=== PATIENT | female | born 1945 | race Caucasian/White ===

== ENCOUNTER 2017-01-31 09:04 | Inpatient (IN) | payer OTHER ==
[2017-01-31] MEDS ORDERED: SODIUM CHLORIDE 1,000 ML IV ONE (09:49)
--- NOTE | 2017-01-31 09:50 | PDOC ---
History of Present Illness <Mark Mcintosh - Last Filed: 01/31/17 14:01> - General History Source: Patient, Spouse, Old Records Exam Limitations: No Limitations - History of Present Illness Initial Comments: 01/31/17 09:56 71-year-old female with history of hypertension and high cholesterol, uterine fibroids presents with heavy vaginal bleeding since last night around 11:30 PM. Patient was in her usual state of health, does not take any blood thinners, around 11:30 had painless bleeding from the vagina with clots that has been nonstop since last night, soaked about 5-6 pads during the night and another 3- 4 pads this morning so she presents for evaluation. No pain, no lightheadedness or syncope, no palpitations or chest pain. No urinary complaints or rectal bleeding. Patient was seen here 3 years ago for similar complaints, ultrasound at that time showed uterine fibroids and she had brief follow-up with [facility] but never had any procedures as per her and her . <Saeid Souza - Last Filed: 01/31/17 14:10> - General Chief Complaint: Vaginal Bleeding Stated Complaint: VAGINAL BLEEDING Time Seen by Provider: 01/31/17 09:31 Past History <Mark Mcintosh - Last Filed: 01/31/17 14:01> - Past Medical History HTN: Yes - Psycho/Social/Smoking Cessation Hx Anxiety: No Suicidal Ideation: No Smoking History: Never smoked Hx Alcohol Use: Yes (SOCIAL) Substance Use Type: None <Saeid Souza - Last Filed: 01/31/17 14:10> - Past Medical History Allergies/Adverse Reactions: Allergies Allergy/AdvReac Type Severity Reaction Status Date / Time No Known Allergies Allergy Verified 01/31/17 09:13 Home Medications: Ambulatory Orders Amlodipine Besylate [Norvasc -] 10 mg PO DAILY 01/31/17 Atorvastatin Ca [Lipitor] 40 mg PO HS 01/31/17 Lisinopril/Hydrochlorothiazide [Lisinopril-Hctz 20-12.5 mg Tab] 1 each PO DAILY 01/31/17 Review of Systems - Review of Systems Constitutional: No: Chills, Fever Respiratory: No: Cough, Shortness of Breath ABD/GI: No: Diarrhea, Nausea, Vomiting : No: Dysuria, Incontinence Integumentary: No: Bruising Neurological: No: Headache All Other Systems: Reviewed and Negative <Saeid Souza - Last Filed: 01/31/17 14:10> *Physical Exam - Vital Signs Last Vital Signs Temp Pulse Resp BP Pulse Ox 98.5 F 75 16 122/55 95 01/31/17 10:02 01/31/17 11:46 01/31/17 11:46 01/31/17 11:46 01/31/17 11:46 <Mark Mcintosh - Last Filed: 01/31/17 14:01> - Vital Signs Last Vital Signs Temp Pulse Resp BP Pulse Ox 97.8 F 115 H 19 155/75 98 01/31/17 09:13 01/31/17 09:13 01/31/17 09:13 01/31/17 09:13 01/31/17 09:13 - Physical Exam Comments: 01/31/17 09:58 Heart rate 115 at triage, lying in stretcher improved to 90. Blood pressure within normal limits GENERAL: The patient is awake, alert, and fully oriented, in no acute distress. No obvious skin pallor. HEAD: Normal with no signs of trauma. EYES: PERRL, EOMI, sclera anicteric, conjunctiva clear with no pallor. ENT: oropharynx clear without exudates. Moist mucous membranes. NECK: Normal range of motion, supple without lymphadenopathy, JVD, or masses. LUNGS: Breath sounds equal, clear to auscultation bilaterally. No wheeze/ crackles. HEART: Regular rate and rhythm, normal S1 and S2 without murmur or rub ABDOMEN: Soft/nontender/nondistended. BS wnl. No guarding or rebound. No palpable masses. No hepatosplenomegaly. LATHE MECHANIC: Performed with finance attorney at bedside. Clots from vagina, no clear rectal bleeding. Some fresh blood oozing. EXTREMITIES: Normal range of motion, no edema. 2+ distal pulses. No cords, erythema, or tenderness. NEUROLOGICAL: Cranial nerves II through XII grossly intact. Normal speech, normal gait. PSYCH: Normal mood, normal affect. SKIN: Warm, Dry, no rashes or lesions noted. <Saeid Souza - Last Filed: 01/31/17 14:10> Heart Score/ECG Review #1 ECG reviewed & interpreted by me at: 09:53 Compared to previous ECG there are: Changes noted (2007) 01/31/17 10:08 Sinus at 91. Intervals are normal. ST depressions in the lateral leads 1 and aVL , V4 through V6. Submillimeter ST elevation isolated to V1 with some notable elevation in aVR as well. Compared to prior EKG from 2007, these changes are new. EKG reviewed with cardiology in the emergency department, not consistent with PHYLLIS for [place], the elevations are isolated to V1 and the depressions are not fraud representative of reciprocal changes. EKG and ST depressions more consistent with chronic disease. <Saeid Souza - Last Filed: 01/31/17 14:10> ED Treatment Course - LABORATORY CBC & Chemistry Diagram: 01/31/17 13:29 01/31/17 09:48 - ADDITIONAL ORDERS Additional order review: Laboratory Results 01/31/17 01/31/17 01/31/17 09:54 09:54 09:48 INR PTT (Actin FS) Sodium 141 Potassium 3.7 Chloride 104 Carbon Dioxide 28 Anion Gap 9 BUN 22 H Creatinine 0.9 Creat Clearance w eGFR > 60 Random Glucose 196 H D Calcium 9.1 Total Bilirubin 0.8 D AST 13 L ALT 24 Alkaline Phosphatase 80 Creatine Kinase 61 Troponin I < 0.02 Total Protein 7.1 Albumin 3.8 Anti-A Titer Cancelled Blood Type B POSITIVE Cancelled Antibody Screen Negative Cancelled Spec Expiration Date Cancelled 01/31/17 09:48 INR 1.14 PTT (Actin FS) 29.6 Sodium Potassium Chloride Carbon Dioxide Anion Gap BUN Creatinine Creat Clearance w eGFR Random Glucose Calcium Total Bilirubin AST ALT Alkaline Phosphatase Creatine Kinase Troponin I Total Protein Albumin Anti-A Titer Blood Type Antibody Screen Spec Expiration Date 01/31/17 01/31/17 13:29 09:48 RBC 3.62 3.98 MCV 89.6 89.9 MCHC 34.7 35.0 RDW 12.8 12.9 MPV 9.2 9.0 Neutrophils % 70.2 Lymphocytes % 21.3 Monocytes % 5.6 Eosinophils % 1.9 Basophils % 1.0 - Medications Given in the ED: ED Medications Discontinued Medications Generic Name Dose Route Start Last Admin Trade Name Freq PRN Reason Stop Dose Admin Sodium Chloride 1,000 mls @ 1,000 mls/hr 01/31/17 09:49 01/31/17 10:02 Normal Saline - IV 01/31/17 10:48 1,000 mls/hr ONCE ONE Administration - Consult/PCP Time Called: 01:40 Case discussed with consulting physician: Katy Her - Additional Consults Time Called: 02:00 Consult/PCP: Dr. Sveta Hoyt <Mark Mcintosh - Last Filed: 01/31/17 14:01> - LABORATORY CBC & Chemistry Diagram: 01/31/17 13:29 01/31/17 09:48 - RADIOLOGY Radiology Studies Ordered: Category Date Time Status CHEST X-RAY PORTABLE* [RAD] Stat Radiology 01/31/17 09:45 Ordered <Saeid Souza - Last Filed: 01/31/17 14:10> Medical Decision Making - Medical Decision Making 01/31/17 10:04 71-year-old female with history of hypertension, high cholesterol, fibroids presents with heavy vaginal bleeding since last night, otherwise essentially asymptomatic without lightheadedness/near syncope/chest pain/palpitations. Tachycardic at triage, improved with lying in stretcher, active slow bleed from vagina with clots. Abdomen is otherwise benign. Placed immediately on monitor and large-bore IV access obtained IV fluid resuscitation initiated Blood work including type and screen EKG Transfuse as needed Pelvic ultrasound, likely [facility] MECH[employer]IC consult Reassess 01/31/17 10:47 Hemoglobin 12.5, previously 13.6 and 2014. Hemodynamically improved, blood pressure 130 systolic and heart rate 72. Clot in the vagina, still slow/oozing active bleeding. EKG x2 showed lateral ST depressions unchanged, reviewed with cardiology and no notable PHYLLIS. Will repeat CBC at 1pm, likely admission/application support administrator consultation given ongoing bleeding. 01/31/17 13:21 HD stable and improved, still with active bleeding from vagina with clots. Sono shows large heterogeneous fibroid. 2nd CBC sent, will consult [facility] and proceed given ongoing bleeding. 01/31/17 14:09 Hemoglobin 11.3, remains hemodynamically stable. Discussed with Dr. Jacobson, agrees with management. Will discuss case with Dr. Teran. Accepted for obs med/surg by Dr. Hoyt. <Saeid Souza - Last Filed: 01/31/17 14:10> *DC/Admit/Observation/Transfer <Mark Mcintosh - Last Filed: 01/31/17 14:01> - Discharge Dispostion Admit: Yes <Saeid Souza - Last Filed: 01/31/17 14:10> Diagnosis at time of Disposition: Excessive vaginal bleeding Uterine leiomyoma Qualifiers: Uterine leiomyoma location: unspecified location Qualified Code(s): D25.9 - Leiomyoma of uterus, unspecified - Discharge Dispostion Condition at time of disposition: Fair - Referrals Referrals: Patricia Sandhu MD [Primary Care Provider] -
[2017-01-31 10:02] LABS: EOSINOPHIL 1.9 % (0-4.5); MCH 31.4 pg (25.7-33.7); MEAN CELL VOLUME 89.9 fl (80-96); NEUTROPHILS 70.2 % (42.8-82.8); PLATELET COUNT 218 K/MM3 (134-434); RDW 12.9 % (11.6-15.6); WHITE BLOOD COUNT 9.4 K/mm3 (4.0-10.0)
[2017-01-31 10:19] LABS: INR 1.14 (0.82-1.09); PROTHROMBIN TIME (PATIENT) 12.6 SEC (9.98-11.88)
[2017-01-31 10:22] LABS: ACTIVATED PTT 29.6 SECONDS (26.9-34.4)
[2017-01-31 10:25] LABS: ALBUMIN 3.8 g/dl (3.4-5.0); ANION GAP 9 (8-16); CALCIUM 9.1 mg/dL (8.5-10.1); CO2 28 mmol/L (21-32); CREATININE 0.9 mg/dL (0.55-1.02); GLUCOSE,RANDOM 196 mg/dL (74-106); SGOT/AST 13 U/L (15-37); SGPT/ALT 24 U/L (12-78); TOT PROT 7.1 g/dl (6.4-8.2)
[2017-01-31] MEDS ORDERED: ASPIRIN 81 MG CHEWABLE TABLETS ONE (10:26)
[2017-01-31 10:54] LABS: ALK PHOS 80 U/L (45-117); BILIRUBIN,TOTAL 0.8 mg/dL (0.2-1.0); CPK 61 IU/L (26-192); TROPONIN I < 0.02 ng/ml (0.00-0.05)
--- NOTE | 2017-01-31 12:15 | EKG ---
Test Reason : Blood Pressure : / mmHG Vent. Rate : 081 BPM Atrial Rate : 081 BPM P-R Int : 158 ms QRS Dur : 088 ms QT Int : 392 ms P-R-T Axes : 040 -15 111 degrees QTc Int : 455 ms NORMAL SINUS RHYTHM WITH SINUS ARRHYTHMIA LEFT VENTRICULAR HYPERTROPHY WITH REPOLARIZATION ABNORMALITY INFERIOR INFARCT (CITED ON OR BEFORE 31-JAN-2017) ABNORMAL ECG WHEN COMPARED WITH ECG OF 31-JAN-2017 09:53, NO SIGNIFICANT CHANGE WAS FOUND Confirmed by JOANIE FLOWERS MD ([id number]) on 01/31/2017 12:15:29 PM Referred By: Confirmed By:JOANIE FLOWERS MD
--- NOTE | 2017-01-31 12:16 | EKG ---
Test Reason : Blood Pressure : / mmHG Vent. Rate : 091 BPM Atrial Rate : 091 BPM P-R Int : 158 ms QRS Dur : 086 ms QT Int : 374 ms P-R-T Axes : 037 -17 103 degrees QTc Int : 460 ms NORMAL SINUS RHYTHM POSSIBLE LEFT ATRIAL ENLARGEMENT LEFT VENTRICULAR HYPERTROPHY WITH REPOLARIZATION ABNORMALITY INFERIOR INFARCT , AGE UNDETERMINED ABNORMAL ECG NO PREVIOUS ECGS AVAILABLE Confirmed by JOANIE FLOWERS MD ([id number]) on 01/31/2017 12:15:50 PM Referred By: Confirmed By:JOANIE FLOWERS MD
[2017-01-31 13:37] LABS: MCH 31.1 pg (25.7-33.7); MCHC 34.7 g/dl (32.0-36.0); MEAN CELL VOLUME 89.6 fl (80-96); MEAN PLT VOLUME 9.2 fl (7.5-11.1); PLATELET COUNT 199 K/MM3 (134-434); RDW 12.8 % (11.6-15.6)
[2017-01-31 17:03] VITALS: BMI 32.8
--- NOTE | 2017-01-31 17:11 | HP ---
Admitting History and Physical - Primary Care Physician PCP: Krishna Hoyt - Admission History of Present Illness: 71-year-old female with history of hypertension and high cholesterol, uterine fibroids presents with heavy vaginal bleeding since last night around 11:30 PM. Patient was in her usual state of health, does not take any blood thinners, around 11:30 had painless bleeding from the vagina with clots that has been nonstop since last night, soaked about 5-6 pads during the night and another 3- 4 pads this morning so she presents for evaluation. Patient was seen here 3 years ago for similar complaints, ultrasound at that time showed uterine fibroids and she had brief follow-up with [facility] but never had any procedures as per her and her . - Smoking History Smoking history: Never smoked - Alcohol/Substance Use Hx Alcohol Use: Yes (SOCIAL) Home Medications - Allergies Allergies/Adverse Reactions: Allergies Allergy/AdvReac Type Severity Reaction Status Date / Time No Known Allergies Allergy Verified 01/31/17 09:13 - Home Medications Home Medications: Ambulatory Orders Amlodipine Besylate [Norvasc -] 10 mg PO DAILY 01/31/17 Atorvastatin Ca [Lipitor] 40 mg PO HS 01/31/17 Lisinopril/Hydrochlorothiazide [Lisinopril-Hctz 20-12.5 mg Tab] 1 each PO DAILY 01/31/17 Physical Examination Vital Signs: Vital Signs Temperature 98 F 01/31/17 14:10 Pulse Rate 69 01/31/17 15:05 Respiratory Rate 16 01/31/17 15:05 Blood Pressure 140/78 01/31/17 15:05 O2 Sat by Pulse Oximetry (%) 95 01/31/17 15:05 Constitutional: Yes: No Distress HENT: Yes: Atraumatic Neck: Yes: Supple Cardiovascular: Yes: Regular Rate and Rhythm Respiratory: Yes: CTA Bilaterally Gastrointestinal: Yes: Normal Bowel Sounds Extremities: Yes: WNL Edema: No Neurological: Yes: Alert Problem List - Problems (1) Excessive vaginal bleeding Assessment/Plan: d and c tomorrow dr dayana amin cbc Code(s): N92.0 - EXCESSIVE AND FREQUENT MENSTRUATION WITH REGULAR CYCLE (2) Fibroid (bleeding) (uterine) Assessment/Plan: fu cbc and monitor bleeding Code(s): D25.9 - LEIOMYOMA OF UTERUS, UNSPECIFIED Qualifiers: Uterine leiomyoma location: intramural and submucous Qualified Code( s): D25.1 - Intramural leiomyoma of uterus Assessment/Plan Laboratory Tests 01/31/17 01/31/17 01/31/17 09:48 09:48 09:48 WBC 9.4 RBC 3.98 Hgb 12.5 Hct 35.8 MCV 89.9 MCH 31.4 MCHC 35.0 RDW 12.9 Plt Count 218 MPV 9.0 Neutrophils % 70.2 Lymphocytes % 21.3 Monocytes % 5.6 Eosinophils % 1.9 Basophils % 1.0 INR 1.14 PTT (Actin FS) 29.6 Sodium 141 Potassium 3.7 Chloride 104 Carbon Dioxide 28 Anion Gap 9 BUN 22 H Creatinine 0.9 Creat Clearance w eGFR > 60 Random Glucose 196 H D Calcium 9.1 Total Bilirubin 0.8 D AST 13 L ALT 24 Alkaline Phosphatase 80 Creatine Kinase 61 Troponin I < 0.02 Total Protein 7.1 Albumin 3.8 Anti-A Titer Blood Type Antibody Screen Spec Expiration Date 01/31/17 01/31/17 01/31/17 09:54 09:54 13:29 WBC 10.0 RBC 3.62 Hgb 11.3 Hct 32.5 MCV 89.6 MCH 31.1 MCHC 34.7 RDW 12.8 Plt Count 199 MPV 9.2 Neutrophils % Lymphocytes % Monocytes % Eosinophils % Basophils % INR PTT (Actin FS) Sodium Potassium Chloride Carbon Dioxide Anion Gap BUN Creatinine Creat Clearance w eGFR Random Glucose Calcium Total Bilirubin AST ALT Alkaline Phosphatase Creatine Kinase Troponin I Total Protein Albumin Anti-A Titer Cancelled Blood Type Cancelled B POSITIVE Antibody Screen Cancelled Negative Spec Expiration Date Cancelled Active Medications Generic Name Dose Route Start Last Admin Trade Name Freq PRN Reason Stop Dose Admin Acetaminophen 650 mg 02/01/17 15:53 Tylenol - PO Q6H PRN FEVER OR PAIN Amlodipine Besylate 10 mg 02/02/17 10:00 02/02/17 09:31 Norvasc - PO 10 mg DAILY JENNIFER Administration Atorvastatin Calcium 40 mg 02/01/17 22:00 02/01/17 21:05 Lipitor - PO 40 mg HS JENNIFER Administration Fentanyl 25 mcg 02/01/17 15:28 Sublimaze Injection - IVPUSH 02/04/17 15:29 [id number] PRN PAIN Fentanyl 50 mcg 02/01/17 15:28 Sublimaze Injection - IVPUSH 02/04/17 15:29 [id number] PRN PAIN Lactated Ringer's 1,000 mls @ 125 mls/hr 02/01/17 15:30 02/01/17 18:13 Lactated Ringers Solution IV Not Given ASDIR JENNIFER Ibuprofen 600 mg 02/01/17 15:53 Motrin - PO Q6H PRN FEVER Ondansetron HCl 4 mg 02/01/17 15:53 Zofran Injection IVPB Q6H PRN NAUSEA Oxycodone HCl 5 mg 02/01/17 15:53 Roxicodone - PO Q4H PRN PAIN
--- NOTE | 2017-01-31 19:48 | CON.OBG ---
Consult Consult Specialty:: manager communication Referred by:: DR Pearl Reason for Consultation:: postmenopausal vaginal bleeding - History of Present Illness Chief Complaint: vaginal bleeding History of Present Illness: 71 yo f with hx of fibroid uterus c/o pain less vaginal bleeding , heavy at times since last night , no dizziness , small clots passed - History Source History Provided By: Patient Limitations to Obtaining History: Poor Historian - Past Medical History Cardio/Vascular: Yes: HTN, Hyperlipdemia Reproductive: Yes: Fibroids - Alcohol/Substance Use Hx Alcohol Use: Yes (SOCIAL) - Smoking History Smoking history: Never smoked - Social History History of Recent Travel: No Home Medications - Allergies Allergies/Adverse Reactions: Allergies Allergy/AdvReac Type Severity Reaction Status Date / Time No Known Allergies Allergy Verified 01/31/17 09:13 - Home Medications Home Medications: Ambulatory Orders Amlodipine Besylate [Norvasc -] 10 mg PO DAILY 01/31/17 Atorvastatin Ca [Lipitor] 40 mg PO HS 01/31/17 Lisinopril/Hydrochlorothiazide [Lisinopril-Hctz 20-12.5 mg Tab] 1 each PO DAILY 01/31/17 Review of Systems - Review of Systems Constitutional: reports: No Symptoms Eyes: reports: No Symptoms HENT: reports: No Symptoms Neck: reports: No Symptoms Cardiovascular: reports: No Symptoms Respiratory: reports: No Symptoms Gastrointestinal: reports: No Symptoms Genitourinary: reports: Vaginal Bleeding Musculoskeletal: reports: Back Pain, Extremity Pain, Muscle Weakness Integumentary: reports: No Symptoms Physical Exam-DENTAL ASSISTANT MEDICAL ASSISTANT Vital Signs: Vital Signs Temperature 98.0 F 01/31/17 19:13 Pulse Rate 67 01/31/17 19:13 Respiratory Rate 20 01/31/17 19:13 Blood Pressure 130/76 01/31/17 19:13 O2 Sat by Pulse Oximetry (%) 95 01/31/17 15:05 Constitutional: Yes: Anxious Pelvis: Yes: WNL External Genitalia: Yes: Normal Internal Exam Deferred: No Vaginal Exam: Yes: Bleeding Cervix: Yes: Bleeding Uterus: Yes: Enlarged, Lumpy Adnexa: Not Palpable: Left, Right Problem List - Problems (1) Postmenopausal bleeding Code(s): N95.0 - POSTMENOPAUSAL BLEEDING (2) Fibroid (bleeding) (uterine) Code(s): D25.9 - LEIOMYOMA OF UTERUS, UNSPECIFIED Qualifiers: Uterine leiomyoma location: intramural and submucous Qualified Code( s): D25.1 - Intramural leiomyoma of uterus; D25.0 - Submucous leiomyoma of uterus Assessment/Plan monitor cbc , advised D&C r/o EM cancer, r/o sarcoma ,
[2017-01-31] MEDS ORDERED: ACETAMINOPHEN 325 MG TABLET (FP) PO PRN (20:11)
[2017-01-31] MEDS ORDERED: ATORVASTATIN CA 40 MG TABLET (FP) PO SCH (22:00)
[2017-01-31] MEDS: DEXTROSE 5%-LACTATED RINGERS 1,000 ML IV SCH (22:28)
[2017-02-01] MEDS: DEXTROSE 5%-LACTATED RINGERS 1,000 ML IV SCH (06:20)
[2017-02-01 08:53] LABS: BASOPHIL 0.5 % (0-2.0); EOSINOPHIL 0.9 % (0-4.5); MCH 30.9 pg (25.7-33.7); MCHC 34.4 g/dl (32.0-36.0); MEAN CELL VOLUME 89.9 fl (80-96); MEAN PLT VOLUME 9.2 fl (7.5-11.1); NEUTROPHILS 72.1 % (42.8-82.8); PLATELET COUNT 164 K/MM3 (134-434); RDW 12.6 % (11.6-15.6); WHITE BLOOD COUNT 10.6 K/mm3 (4.0-10.0)
[2017-02-01 09:31] LABS: ALK PHOS 62 U/L (45-117); ANION GAP 8 (8-16); BILIRUBIN,TOTAL 0.7 mg/dL (0.2-1.0); CO2 27 mmol/L (21-32); CREATININE 0.6 mg/dL (0.55-1.02); GLUCOSE,RANDOM 153 mg/dL (74-106); SGOT/AST 13 U/L (15-37); SGPT/ALT 19 U/L (12-78); TOT PROT 5.8 g/dl (6.4-8.2)
[2017-02-01 09:34] LABS: CALCIUM 8.4 mg/dL (8.5-10.1)
[2017-02-01] MEDS ORDERED: amLODIPine BESYLATE 10 MG TABLET (FP) PO SCH (10:00)
--- NOTE | 2017-02-01 13:49 | PN ---
Progress Note, Physician - Current Medication List Current Medications: Active Medications Acetaminophen (Tylenol -) 650 mg PO Q6H PRN PRN Reason: FEVER OR PAIN Last Admin: 01/31/17 23:53 Dose: 650 mg Amlodipine Besylate (Norvasc -) 10 mg PO DAILY [facility] Last Admin: 02/01/17 09:31 Dose: 10 mg Atorvastatin Calcium (Lipitor -) 40 mg PO HS [facility] Last Admin: 01/31/17 21:48 Dose: 40 mg Dextrose/Lactated Ringer's (D5-Lr -) 1,000 mls @ 125 mls/hr IV ASDIR [facility] Last Admin: 02/01/17 06:20 Dose: 125 mls/hr - Objective Vital Signs: Vital Signs Temperature 98.1 F 02/01/17 08:00 Pulse Rate 73 02/01/17 08:00 Respiratory Rate 20 02/01/17 08:00 Blood Pressure 140/74 02/01/17 08:00 O2 Sat by Pulse Oximetry (%) 97 02/01/17 08:00 Constitutional: Yes: No Distress HENT: Yes: Atraumatic Neck: Yes: Supple Cardiovascular: Yes: Regular Rate and Rhythm Respiratory: Yes: CTA Bilaterally Extremities: Yes: WNL Neurological: Yes: Alert Labs: CBC, BMP 02/01/17 07:30 02/01/17 07:30 INR, PTT INR 1.14 (0.82-1.09) 01/31/17 09:48 Problem List - Problems (1) Excessive vaginal bleeding Assessment/Plan: d and c today dr dayana amin cbc Code(s): N92.0 - EXCESSIVE AND FREQUENT MENSTRUATION WITH REGULAR CYCLE (2) Fibroid (bleeding) (uterine) Code(s): D25.9 - LEIOMYOMA OF UTERUS, UNSPECIFIED Qualifiers: Uterine leiomyoma location: intramural and submucous Qualified Code( s): D25.1 - Intramural leiomyoma of uterus
[2017-02-01] MEDS ORDERED: PROPOFOL 20 ML ONE ×2 (14:30)
[2017-02-01] MEDS ORDERED: IBUPROFEN 600 MG TABLET (FP) PO PRN ×2 (15:12→15:53)
[2017-02-01] MEDS ORDERED: ONDANSETRON 4 MG/2 ML VIAL IVPB PRN ×2 (15:12→15:53)
[2017-02-01] MEDS ORDERED: oxyCODONE HCL 5 MG TABLET PO PRN ×3 (15:12→15:53)
[2017-02-01] MEDS ORDERED: LACTATED RINGERS SOLUTION 1,000 ML IV SCH (15:30)
[2017-02-01] MEDS ORDERED: ACETAMINOPHEN 325 MG TABLET (FP) PO PRN (15:53)
[2017-02-01] MEDS ORDERED: ATORVASTATIN CA 40 MG TABLET (FP) PO SCH (22:00)
--- NOTE | 2017-02-02 08:56 | PN ---
Progress Note (short form) - Note Progress Note: Anesthesia Post op Pt seen and examined S:alert and awake O: Vital Signs Temperature 97.2 F L 02/02/17 08:34 Pulse Rate 99 H 02/02/17 08:34 Respiratory Rate 20 02/02/17 08:34 Blood Pressure 148/82 02/02/17 08:34 O2 Sat by Pulse Oximetry (%) 97 02/01/17 19:48 CBC, BMP 02/01/17 07:30 Current Active Problems Excessive vaginal bleeding (Acute) Fibroid (bleeding) (uterine) (Acute) Postmenopausal bleeding (Acute) s/p hysteroscopy Dn C Doing well post op Continue current care Ceasar Live MD
[2017-02-02 09:08] LABS: MCH 30.8 pg (25.7-33.7); MCHC 34.2 g/dl (32.0-36.0); MEAN PLT VOLUME 9.3 fl (7.5-11.1); PLATELET COUNT 167 K/MM3 (134-434); RDW 12.8 % (11.6-15.6); WHITE BLOOD COUNT 10.9 K/mm3 (4.0-10.0)
[2017-02-02] MEDS ORDERED: amLODIPine BESYLATE 10 MG TABLET (FP) PO SCH (10:00)
[2017-02-02 15:18] VITALS: BP 116/58; PULSE 86; TEMP 98
--- NOTE | 2017-02-02 16:20 | DS ---
Physical Examination Vital Signs: Vital Signs Temperature 98.0 F 02/02/17 15:16 Pulse Rate 86 02/02/17 15:16 Respiratory Rate 20 02/02/17 15:16 Blood Pressure 116/58 02/02/17 15:16 O2 Sat by Pulse Oximetry (%) 95 02/02/17 09:00 Constitutional: Yes: No Distress HENT: Yes: Atraumatic Neck: Yes: Supple Cardiovascular: Yes: Regular Rate and Rhythm Respiratory: Yes: CTA Bilaterally Gastrointestinal: Yes: Normal Bowel Sounds Extremities: Yes: WNL Neurological: Yes: Alert, Oriented Labs: CBC, BMP 02/02/17 07:30 02/01/17 07:30 Discharge Summary Reason For Visit: VAGINAL BLEEDING Current Active Problems Excessive vaginal bleeding (Acute) Fibroid (bleeding) (uterine) (Acute) Postmenopausal bleeding (Acute) Condition: Fair - Instructions Diet, Activity, Other Instructions: see obgyn next week for further work up Referrals: Patricia Sandhu MD [Primary Care Provider] - Sebastien Teran MD [Staff Physician] - - Home Medications Comprehensive Discharge Medication List: Ambulatory Orders Amlodipine Besylate [Norvasc -] 10 mg PO DAILY 01/31/17 Atorvastatin Ca [Lipitor] 40 mg PO HS 01/31/17 Lisinopril/Hydrochlorothiazide [Lisinopril-Hctz 20-12.5 mg Tab] 1 each PO DAILY 01/31/17 [place] home
--- NOTE | 2017-02-05 10:19 | OP ---
DATE OF OPERATION: 02/01/2017 PREOPERATIVE DIAGNOSES: Postmenopausal bleeding, fibroid uterus.dropping Hb/HCT POSTOPERATIVE DIAGNOSES: Postmenopausal bleeding, fibroid uterus, endometrial cancer pending pathology. SURGEON: Sebastien Teran MD ANESTHESIA: General. ESTIMATED BLOOD LOSS: 100 mL DESCRIPTION OF OPERATION: Patient was taken to the operating room. Under adequate general anesthesia, examination under anesthesia revealed external genitalia to be normal. Vagina was normal. Cervix was clean; no gross lesion. Uterus was enlarged, approximately 14 weeks' size and irregular. Adnexa: No masses were palpable. Then, with a weighted speculum in the vagina, anterior lip of the cervix was grasped with a single-tooth tenaculum. Cervix was dilated and did not require dilation. Uterine cavity sounded to 10 cm. Then, the hysteroscope was introduced. Visualization of endocervical canal appeared to be normal, but endometrium appeared to be irregular, hypertrophic, and congested. Both cornual regions were identified. Then, hysteroscope was withdrawn, and then, uterine cavity was curetted. A large amount of tissue was obtained. The patient tolerated the procedure well, left the OR in good condition. Lilly [id number] MTDD
--- NOTE | 2017-02-05 14:51 | PATH ---
Surgical Pathology Report Patient Name: GUALBERTO ANDERSON [facility]. Rec. #: [id number] /Age/Gender: 1945 (Age: 71) / F Account: [id number] Location: [address] [place] [address] Taken: 02/01/2017 Received: 02/04/2017 Reported: 02/05/2017 Physicians: Sebastien Teran M.D. Specimen(s) Received ENDOMETRIAL CURETTINGS Clinical History Vaginal bleeding Final Diagnosis ENDOMETRIUM, CURETTAGE: ENDOMETRIAL ENDOMETRIOID ADENOCARCINOMA, FIGO GRADE I. Comment: No malignant stromal component is identified in the examined material. DNA mismatch repair (MMR) protein expression analysis by IHC is pending; results will be reported in an addendum. The case was discussed with Dr. Teran on 02/05/17. Electronically Signed Corona Valdes M.D. Addendum Reported: 02/06/2017 Addendum Diagnosis Results of Estrogen Receptor (ER) and Progesterone Receptor (TN) studies performed on block #5 at [facility] are as follows: ER (clone [id number] mouse monoclonal antibody by [employer]): >90% nuclear staining with strong intensity (Positive). TN (clone16 mouse monoclonal antibody by [employer]): ~80% nuclear staining with strong intensity (Positive). Positive and negative controls (internal if applicable) show appropriate results. Formalin fixation and cold ischemic times are within current ASCO/CAP recommendations for ER, TN and Her2 testing. DNA Mismatch Repair (MMR) protein expression analysis by IHC performed at the [place], [place] ([id number]) on block #3 and interpreted [facility] shows the following: Results: hMLH-1 DNA Mismatch Repair Protein: Intact nuclear expression hMSH-2 DNA Mismatch Repair Protein: Intact nuclear expression hMSH-6 DNA Mismatch Repair Protein: Intact nuclear expression PMS2 DNA Mismatch Repair Protein: Intact nuclear expression Interpretation: No defect in DNA Mismatch Repair (MMR) protein expression is identified by IHC. This result is usually seen in MSI-H stable tumors and is not associated with HNPCC (Dickens syndrome). Corona Valdes M.D. Gross Description Received in formalin labeled "endometrial curettings" is a 12.0 x 7.8 x 0.8 cm aggregate of walden-brown soft tissue fragments. The formalin is filtered and the specimen is entirely submitted in 18 cassettes. 02/04/201702/04/2017
== END 2017-02-02 17:00 | disposition home or self-care (01) | DRG 744 ==
LOC: JER 09:04 → JERBED 14:10 → J6S 15:45
PROVIDERS: ADMIT Internal Medicine; ATTEND Internal Medicine
PROC: 0UDB8ZX Extraction of Endometrium, Via Natural or Artificial Opening Endoscopic, Diagnostic (ICD-10-PCS; principal; 2017-02-01 14:00)
DX: D25.1 Intramural leiomyoma of uterus (principal); R71.0 Precipitous drop in hematocrit; N95.0 Postmenopausal bleeding; I10 Essential (primary) hypertension; E78.00 Pure hypercholesterolemia, unspecified
CPT/HCPCS: 36415; 71010-TC; 73030-TC-RT; 76856-TC; 80053; 84484; 85025; 85027; 85610; 85730; 86850; 86900; 86901; 88305-TC; 93005; 93010; 94760; 99284-25

== ENCOUNTER 2022-12-05 05:48 | Inpatient (IN) | payer OTHER ==
[2022-12-05 06:12] VITALS: BMI 27.4
[2022-12-05 06:52] LABS: BASO % 0.5 % (0-2.0); EOS % 1.3 % (0-4.5); HEMATOCRIT 40.7 % (32.4-45.2); HEMOGLOBIN 13.8 GM/dL (10.7-15.3); LYMPH % 9.8 % (8-40); MCH 31.1 pg (25.7-33.7); MCHC 33.9 g/dl (32.0-36.0); MEAN CELL VOLUME 91.8 fl (80-96); MEAN PLT VOLUME 9.6 fl (7.5-11.1); MONO % 9.4 % (3.8-10.2); PLATELET COUNT 212 10^3/uL (134-434); RBC 4.44 M/mm3 (3.60-5.2); RDW 12.6 % (11.6-15.6); WHITE BLOOD COUNT 14.1 K/mm3 (4.0-10.0)
[2022-12-05 06:56] LABS: INR 1.17 (0.83-1.09); PROTHROMBIN TIME (PATIENT) 13.5 SEC (9.7-13.0)
[2022-12-05 07:19] LABS: ALBUMIN 3.4 g/dl (3.4-5.0); BLOOD UREA NITROGEN 17.2 mg/dL (7-18); MAGNESIUM 1.6 mg/dL (1.8-2.4)
[2022-12-05 07:22] LABS: CREATININE 0.9 mg/dL (0.55-1.3)
[2022-12-05 07:24] LABS: BILIRUBIN,TOTAL 1.2 mg/dL (0.2-1); TOT PROT 7.5 g/dl (6.4-8.2)
[2022-12-05 07:27] LABS: N-TERMINAL BNP 230.7 pg/ml (5-450)
[2022-12-05] MEDS ORDERED: MAGNESIUM SULF 50% (8.12 MEQ/2 ML-1 GM VIAL) IVPB ONE (07:28)
[2022-12-05] MEDS ORDERED: CIPROFLOXACIN 0.3% EYE DROPS 5 ML BOTTLE OD ONE (07:41)
[2022-12-05] MEDS ORDERED: CIPROFLOXACIN 0.3% EYE DROPS 5 ML BOTTLE ONE (07:57)
[2022-12-05] MEDS ORDERED: MAGNESIUM SULF 50% (8.12 MEQ/2 ML-1 GM VIAL) ONE (07:58)
[2022-12-05] MEDS ORDERED: ALBUTEROL SO4 2.5/IPRATROPIUM 0.5 INH SOL 3 ML VIAL.NEB. NEB ONE ×2 (13:43→14:18)
[2022-12-05] MEDS ORDERED: AZITHROMYCIN IVPB 500 MG in DEXTROSE 5%-WATER - 250 ML IVPB ONE (13:43)
[2022-12-05] MEDS ORDERED: AZITHROMYCIN IVPB 500 MG/250 ML BAG IVPB ONE (14:14)
[2022-12-05] MEDS ORDERED: ACETAMINOPHEN 325 MG TABLET (FP) PO PRN (14:26)
[2022-12-05] MEDS ORDERED: CEFTRIAXONE 1 GM in DEXTROSE 5%-WATER - 50 ML IVPB ONE (15:27)
[2022-12-05] MEDS ORDERED: CEFTRIAXONE 1 GM/50 ML BAG ONE (16:29)
[2022-12-05] MEDS: CIPROFLOXACIN 0.3% EYE DROPS 5 ML BOTTLE OD SCH ×2 (17:24→21:55)
[2022-12-05 18:32] LABS: BILIRUBIN,DIRECT 0.3 mg/dL (0.0-0.2)
[2022-12-05] MEDS: ALBUTEROL SO4 2.5/IPRATROPIUM 0.5 INH SOL 3 ML VIAL.NEB. NEB SCH (20:19)
[2022-12-05] MEDS: ATORVASTATIN CA 40 MG TABLET (FP) PO SCH (21:53)
[2022-12-05] MEDS: FLUTICASONE PROP 0.05% 16 GM NASAL SPRAY NS SCH (21:54)
[2022-12-05] MEDS ORDERED: CIPROFLOXACIN 0.3% EYE DROPS 5 ML BOTTLE OU SCH (22:00)
[2022-12-05] MEDS: INSULIN SLIDING SCALE (NOVOLOG) 1 VIAL SQ SCH (22:02)
[2022-12-06] MEDS: CIPROFLOXACIN 0.3% EYE DROPS 5 ML BOTTLE OD SCH ×6 (00:57→20:20)
[2022-12-06] MEDS: INSULIN SLIDING SCALE (NOVOLOG) 1 VIAL SQ SCH ×3 (06:04→17:11)
[2022-12-06] MEDS: ALBUTEROL SO4 2.5/IPRATROPIUM 0.5 INH SOL 3 ML VIAL.NEB. NEB SCH ×4 (07:30→19:52)
[2022-12-06] MEDS: FLUTICASONE PROP 0.05% 16 GM NASAL SPRAY NS SCH ×2 (09:18→22:09)
[2022-12-06] MEDS ORDERED: CIPROFLOXACIN 0.3% EYE DROPS 5 ML BOTTLE OU SCH (10:00)
[2022-12-06 10:14] LABS: POTASSIUM 3.8 mmol/L (3.5-5.1)
[2022-12-06] MEDS: ENOXAPARIN NA (PORCINE) 40 MG/0.4 ML DISP.SYRIN SQ SCH (10:24)
[2022-12-06 10:27] LABS: CALCIUM 8.9 mg/dL (8.5-10.1)
[2022-12-06 10:28] LABS: ALBUMIN 3.3 g/dl (3.4-5.0); BLOOD UREA NITROGEN 14.9 mg/dL (7-18); MAGNESIUM 2.1 mg/dL (1.8-2.4)
[2022-12-06] MEDS: LISINOPRIL 20 MG TABLET PO SCH (10:29)
[2022-12-06] MEDS: HYDROCHLOROTHIAZIDE 12.5 MG CAPSULE (FP) PO SCH (10:29)
[2022-12-06] MEDS: amLODIPine BESYLATE 10 MG TABLET (FP) PO SCH (10:29)
[2022-12-06 10:30] LABS: CREATININE 0.7 mg/dL (0.55-1.3)
[2022-12-06] MEDS: CEFTRIAXONE 1 GM in DEXTROSE 5%-WATER - 50 ML IVPB SCH (10:30)
[2022-12-06] MEDS: AZITHROMYCIN IVPB 250 MG in DEXTROSE 5%-WATER - 250 ML IVPB SCH (10:30)
[2022-12-06 10:31] LABS: HEMATOCRIT 39.5 % (32.4-45.2); HEMOGLOBIN 13.2 GM/dL (10.7-15.3); MCH 30.7 pg (25.7-33.7); MCHC 33.5 g/dl (32.0-36.0); MEAN CELL VOLUME 91.6 fl (80-96); MEAN PLT VOLUME 9.7 fl (7.5-11.1); PLATELET COUNT 213 10^3/uL (134-434); RBC 4.31 M/mm3 (3.60-5.2); RDW 12.5 % (11.6-15.6); WHITE BLOOD COUNT 12.2 K/mm3 (4.0-10.0)
[2022-12-06 10:32] LABS: TOT PROT 6.9 g/dl (6.4-8.2)
[2022-12-06 10:33] LABS: BILIRUBIN,TOTAL 0.9 mg/dL (0.2-1)
[2022-12-06] MEDS: methylPREDNISolone NA SUCC 40 MG/1 ML VIAL IVPUSH SCH ×2 (17:11→22:10)
[2022-12-06] MEDS: ATORVASTATIN CA 40 MG TABLET (FP) PO SCH (22:10)
[2022-12-07] MEDS: CIPROFLOXACIN 0.3% EYE DROPS 5 ML BOTTLE OD SCH ×7 (00:20→23:36)
[2022-12-07] MEDS: methylPREDNISolone NA SUCC 40 MG/1 ML VIAL IVPUSH SCH (04:36)
[2022-12-07] MEDS: INSULIN SLIDING SCALE (NOVOLOG) 1 VIAL SQ SCH ×4 (06:20→17:18)
[2022-12-07] MEDS: ALBUTEROL SO4 2.5/IPRATROPIUM 0.5 INH SOL 3 ML VIAL.NEB. NEB SCH ×4 (07:46→20:34)
[2022-12-07] MEDS ORDERED: methylPREDNISolone NA SUCC 40 MG/1 ML VIAL IVPUSH SCH (10:00)
[2022-12-07 10:09] LABS: BASO % 0.1 % (0-2.0); HEMATOCRIT 41.5 % (32.4-45.2); HEMOGLOBIN 14.1 GM/dL (10.7-15.3); LYMPH % 7.8 % (8-40); MCH 30.9 pg (25.7-33.7); MEAN PLT VOLUME 9.6 fl (7.5-11.1); MONO % 6.6 % (3.8-10.2); NEUT % 85.5 % (42.8-82.8); PLATELET COUNT 257 10^3/uL (134-434); RBC 4.57 M/mm3 (3.60-5.2); RDW 12.3 % (11.6-15.6); WHITE BLOOD COUNT 16.7 K/mm3 (4.0-10.0)
[2022-12-07] MEDS: CEFTRIAXONE 1 GM in DEXTROSE 5%-WATER - 50 ML IVPB SCH (10:09)
[2022-12-07] MEDS: ENOXAPARIN NA (PORCINE) 40 MG/0.4 ML DISP.SYRIN SQ SCH (10:09)
[2022-12-07] MEDS: HYDROCHLOROTHIAZIDE 12.5 MG CAPSULE (FP) PO SCH (10:10)
[2022-12-07] MEDS: amLODIPine BESYLATE 10 MG TABLET (FP) PO SCH (10:10)
[2022-12-07] MEDS: LISINOPRIL 20 MG TABLET PO SCH (10:10)
[2022-12-07] MEDS: FLUTICASONE PROP 0.05% 16 GM NASAL SPRAY NS SCH ×2 (10:11→23:37)
[2022-12-07 10:26] LABS: POTASSIUM 3.9 mmol/L (3.5-5.1)
[2022-12-07] MEDS: AZITHROMYCIN IVPB 250 MG in DEXTROSE 5%-WATER - 250 ML IVPB SCH (10:29)
[2022-12-07 10:34] LABS: ALBUMIN 3.4 g/dl (3.4-5.0); BLOOD UREA NITROGEN 22.6 mg/dL (7-18); CREATININE 0.9 mg/dL (0.55-1.3)
[2022-12-07 10:35] LABS: BILIRUBIN,TOTAL 0.6 mg/dL (0.2-1); CALCIUM 9.5 mg/dL (8.5-10.1); TOT PROT 7.7 g/dl (6.4-8.2)
[2022-12-07] MEDS ORDERED: INSULIN (NOVOLOG) ASPART 100 UNITS/ML 10ML VIAL ONE ×2 (12:35→17:12)
[2022-12-07 19:06] LABS: ARTERIAL BLD GAS O2 SATURATION 94.1 % (95-98); ARTERIAL BLOOD GAS BASE EXCESS 1.2 mmol/L (-2-2); ARTERIAL BLOOD GAS PO2 66.5 mmHg (80-100); ARTERIAL BLOOD GAS pH 7.452 (7.350-7.450)
[2022-12-07 19:09] LABS: ALLENS TEST POSITIVE
[2022-12-07] MEDS: ATORVASTATIN CA 40 MG TABLET (FP) PO SCH (23:37)
[2022-12-08] MEDS: CIPROFLOXACIN 0.3% EYE DROPS 5 ML BOTTLE OD SCH ×5 (04:51→21:05)
[2022-12-08] MEDS: INSULIN SLIDING SCALE (NOVOLOG) 1 VIAL SQ SCH ×3 (07:00→16:52)
[2022-12-08] MEDS: ALBUTEROL SO4 2.5/IPRATROPIUM 0.5 INH SOL 3 ML VIAL.NEB. NEB SCH ×4 (08:05→20:40)
[2022-12-08 09:59] LABS: HEMATOCRIT 40.2 % (32.4-45.2); HEMOGLOBIN 13.5 GM/dL (10.7-15.3); MCH 30.8 pg (25.7-33.7); MCHC 33.7 g/dl (32.0-36.0); MEAN CELL VOLUME 91.5 fl (80-96); PLATELET COUNT 273 10^3/uL (134-434); RBC 4.39 M/mm3 (3.60-5.2); RDW 12.5 % (11.6-15.6); WHITE BLOOD COUNT 20.9 K/mm3 (4.0-10.0)
[2022-12-08 10:13] LABS: POTASSIUM 4.2 mmol/L (3.5-5.1)
[2022-12-08 10:19] LABS: ALBUMIN 3.1 g/dl (3.4-5.0); CALCIUM 9.1 mg/dL (8.5-10.1)
[2022-12-08 10:20] LABS: BLOOD UREA NITROGEN 29.2 mg/dL (7-18)
[2022-12-08 10:22] LABS: CREATININE 0.8 mg/dL (0.55-1.3)
[2022-12-08 10:24] LABS: BILIRUBIN,TOTAL 0.5 mg/dL (0.2-1)
[2022-12-08] MEDS: predniSONE 20 MG TABLET (UD) PO SCH (10:46)
[2022-12-08] MEDS: amLODIPine BESYLATE 10 MG TABLET (FP) PO SCH (10:46)
[2022-12-08] MEDS: ENOXAPARIN NA (PORCINE) 40 MG/0.4 ML DISP.SYRIN SQ SCH (10:46)
[2022-12-08] MEDS: LISINOPRIL 20 MG TABLET PO SCH (10:46)
[2022-12-08] MEDS: HYDROCHLOROTHIAZIDE 12.5 MG CAPSULE (FP) PO SCH (10:46)
[2022-12-08] MEDS: FLUTICASONE PROP 0.05% 16 GM NASAL SPRAY NS SCH ×2 (10:47→22:14)
[2022-12-08] MEDS: CEFTRIAXONE 1 GM in DEXTROSE 5%-WATER - 50 ML IVPB SCH (10:47)
[2022-12-08 10:58] LABS: ANISOCYTOSIS 0; MACROCYTOSIS 1+
[2022-12-08] MEDS: AZITHROMYCIN IVPB 250 MG in DEXTROSE 5%-WATER - 250 ML IVPB SCH (11:28)
[2022-12-08] MEDS ORDERED: INSULIN (NOVOLOG) ASPART 100 UNITS/ML 10ML VIAL ONE (11:39)
[2022-12-08] MEDS: ATORVASTATIN CA 40 MG TABLET (FP) PO SCH (22:14)
[2022-12-09] MEDS: CIPROFLOXACIN 0.3% EYE DROPS 5 ML BOTTLE OD SCH ×6 (00:18→21:00)
[2022-12-09] MEDS: INSULIN SLIDING SCALE (NOVOLOG) 1 VIAL SQ SCH ×4 (06:33→16:40)
[2022-12-09] MEDS: ALBUTEROL SO4 2.5/IPRATROPIUM 0.5 INH SOL 3 ML VIAL.NEB. NEB SCH ×4 (07:29→20:51)
[2022-12-09 09:23] LABS: HEMATOCRIT 43.1 % (32.4-45.2); HEMOGLOBIN 14.2 GM/dL (10.7-15.3); MCH 30.6 pg (25.7-33.7); MEAN CELL VOLUME 92.7 fl (80-96); MEAN PLT VOLUME 9.5 fl (7.5-11.1); PLATELET COUNT 294 10^3/uL (134-434); RBC 4.65 M/mm3 (3.60-5.2); RDW 12.3 % (11.6-15.6); WHITE BLOOD COUNT 15.6 K/mm3 (4.0-10.0)
[2022-12-09] MEDS: LISINOPRIL 20 MG TABLET PO SCH (09:39)
[2022-12-09] MEDS: HYDROCHLOROTHIAZIDE 12.5 MG CAPSULE (FP) PO SCH (09:39)
[2022-12-09] MEDS: CEFTRIAXONE 1 GM in DEXTROSE 5%-WATER - 50 ML IVPB SCH (09:39)
[2022-12-09] MEDS: predniSONE 20 MG TABLET (UD) PO SCH (09:39)
[2022-12-09] MEDS: amLODIPine BESYLATE 10 MG TABLET (FP) PO SCH (09:39)
[2022-12-09] MEDS: ENOXAPARIN NA (PORCINE) 40 MG/0.4 ML DISP.SYRIN SQ SCH (09:39)
[2022-12-09] MEDS: FLUTICASONE PROP 0.05% 16 GM NASAL SPRAY NS SCH ×2 (09:40→23:42)
[2022-12-09 10:02] LABS: CALCIUM 9.1 mg/dL (8.5-10.1)
[2022-12-09 10:03] LABS: BLOOD UREA NITROGEN 25.3 mg/dL (7-18)
[2022-12-09 10:06] LABS: CREATININE 0.7 mg/dL (0.55-1.3)
[2022-12-09 10:23] LABS: ANISOCYTOSIS 0; HELMET CELLS 0; HOWELL-JOLLY BODIES 0; MACROCYTOSIS 0; OVALOCYTE 0; ROULEAU 0; SICKELED CELLS 0; TARGET CELLS 0; TEAR DROP CELLS 0; TOXIC GRANULATION 0
[2022-12-09] MEDS: AZITHROMYCIN IVPB 250 MG in DEXTROSE 5%-WATER - 250 ML IVPB SCH (11:57)
[2022-12-09 19:35] LABS: CHLORIDE 101 mmol/L (98-107); POTASSIUM 4.7 mmol/L (3.5-5.1); SODIUM 136 mmol/L (136-145)
[2022-12-09 19:36] LABS: ANION GAP 10 MMOL/L (8-16); BLOOD UREA NITROGEN 30.2 mg/dL (7-18); CALCIUM 8.9 mg/dL (8.5-10.1); CO2 26 mmol/L (21-32)
[2022-12-09 19:40] LABS: CREATININE 1.2 mg/dL (0.55-1.3)
[2022-12-09 19:43] LABS: GLUCOSE,RANDOM 405 mg/dL (74-106)
[2022-12-09] MEDS ORDERED: INSULIN (NOVOLOG) ASPART 100 UNITS/ML 10ML VIAL SQ ONE ×3 (19:52→20:12)
[2022-12-09] MEDS: ATORVASTATIN CA 40 MG TABLET (FP) PO SCH (23:42)
[2022-12-10] MEDS: CIPROFLOXACIN 0.3% EYE DROPS 5 ML BOTTLE OD SCH ×7 (00:23→21:47)
[2022-12-10] MEDS ORDERED: INSULIN (NOVOLOG) ASPART 100 UNITS/ML 10ML VIAL ONE ×2 (05:58→12:11)
[2022-12-10] MEDS: INSULIN SLIDING SCALE (NOVOLOG) 1 VIAL SQ SCH ×3 (07:04→16:41)
[2022-12-10] MEDS: ALBUTEROL SO4 2.5/IPRATROPIUM 0.5 INH SOL 3 ML VIAL.NEB. NEB SCH ×4 (07:40→20:40)
[2022-12-10] MEDS: ASPIRIN COATED 81 MG TABLET.EC PO SCH (10:14)
[2022-12-10] MEDS: LISINOPRIL 20 MG TABLET PO SCH (10:14)
[2022-12-10] MEDS: HYDROCHLOROTHIAZIDE 12.5 MG CAPSULE (FP) PO SCH (10:14)
[2022-12-10] MEDS: amLODIPine BESYLATE 10 MG TABLET (FP) PO SCH (10:14)
[2022-12-10] MEDS: CEFTRIAXONE 1 GM in DEXTROSE 5%-WATER - 50 ML IVPB SCH (10:15)
[2022-12-10] MEDS: FLUTICASONE PROP 0.05% 16 GM NASAL SPRAY NS SCH ×2 (10:15→21:47)
[2022-12-10] MEDS: ENOXAPARIN NA (PORCINE) 40 MG/0.4 ML DISP.SYRIN SQ SCH (10:15)
[2022-12-10 10:23] LABS: CALCIUM 9.1 mg/dL (8.5-10.1)
[2022-12-10 10:26] LABS: CREATININE 0.7 mg/dL (0.55-1.3)
[2022-12-10] MEDS: AZITHROMYCIN IVPB 250 MG in DEXTROSE 5%-WATER - 250 ML IVPB SCH (11:19)
[2022-12-10] MEDS: ATORVASTATIN CA 40 MG TABLET (FP) PO SCH (21:47)
[2022-12-11] MEDS: CIPROFLOXACIN 0.3% EYE DROPS 5 ML BOTTLE OD SCH ×5 (00:30→16:02)
[2022-12-11] MEDS: INSULIN SLIDING SCALE (NOVOLOG) 1 VIAL SQ SCH ×3 (06:07→17:23)
[2022-12-11 11:52] VITALS: RESP 18
[2022-12-11] MEDS: amLODIPine BESYLATE 10 MG TABLET (FP) PO SCH (11:58)
[2022-12-11] MEDS: ASPIRIN COATED 81 MG TABLET.EC PO SCH (11:58)
[2022-12-11] MEDS: HYDROCHLOROTHIAZIDE 12.5 MG CAPSULE (FP) PO SCH (11:58)
[2022-12-11] MEDS: ENOXAPARIN NA (PORCINE) 40 MG/0.4 ML DISP.SYRIN SQ SCH (11:58)
[2022-12-11] MEDS: LISINOPRIL 20 MG TABLET PO SCH (11:58)
[2022-12-11] MEDS: FLUTICASONE PROP 0.05% 16 GM NASAL SPRAY NS SCH (11:59)
[2022-12-11 16:03] VITALS: BP 117/81; PULSE 73; TEMP 98.2
== END 2022-12-11 17:26 | DRG 202 ==
LOC: JER 05:48 → JERBED 14:46 → J6S 19:43
PROVIDERS: ADMIT Internal Medicine; ATTEND Internal Medicine
DX: J20.9 Acute bronchitis, unspecified (principal); I63.81 Other cerebral infarction due to occlusion or stenosis of small artery; J96.01 Acute respiratory failure with hypoxia; J84.9 Interstitial pulmonary disease, unspecified; I10 Essential (primary) hypertension; E78.5 Hyperlipidemia, unspecified; E11.65 Type 2 diabetes mellitus with hyperglycemia; J01.90 Acute sinusitis, unspecified
CPT/HCPCS: 0241U-QW; 36415; 36600; 70450-TC; 71045-TC-FY; 71250-TC; 80048; 80053; 80061; 82248; 82803; 82962; 83036; 83735; 83880; 84439; 84443; 84484; 85025; 85027; 85610; 85730; 93005; 93010; 93306-TC; 93970-TC; 94640; 94761; 97116-GP; 97162-GP; 99285-25

== ENCOUNTER 2024-07-18 15:52 | Inpatient (IN) | payer OTHER ==
[2024-07-18 17:09] LABS: VENOUS BASE EXCESS 4.5 mmol/L (-2-2); VENOUS O2 SATURATION 39.7 % (70-80); VENOUS PCO2 50.4 mmHg (38-52); VENOUS PH 7.401 (7.310-7.410)
[2024-07-18 17:11] LABS: BASO % 0.7 % (0-2.0); EOS % 1.6 % (0-4.5); HEMATOCRIT 43.8 % (32.4-45.2); LYMPH % 23.1 % (8-40); MCH 31.4 pg (25.7-33.7); MCHC 34.3 g/dl (32.0-36.0); MEAN CELL VOLUME 91.6 fl (80-96); MONO % 7.8 % (3.8-10.2); NEUT % 66.8 % (42.8-82.8); PLATELET COUNT 229 10^3/uL (134-434); RBC 4.79 M/mm3 (3.60-5.2); RDW 12.5 % (11.6-15.6); WHITE BLOOD COUNT 8.5 K/mm3 (4.0-10.0)
[2024-07-18] MEDS: SODIUM CHLORIDE 0.9% 500 ML INFUS.BAG IV ONE (17:13)
[2024-07-18 17:17] LABS: INR 1.1 (0.83-1.09); PROTHROMBIN TIME (PATIENT) 12.1 SEC (9.7-13.0)
[2024-07-18 17:20] LABS: ACTIVATED PTT 29.4 SECONDS (25.2-36.5)
[2024-07-18 17:28] LABS: POTASSIUM 3.7 mmol/L (3.5-5.1)
[2024-07-18 17:31] LABS: ALBUMIN 3.9 g/dl (3.4-5.0); BLOOD UREA NITROGEN 21.3 mg/dL (7-18)
[2024-07-18 17:34] LABS: CREATININE 0.9 mg/dL (0.55-1.3)
[2024-07-18 17:36] LABS: TOT PROT 7.8 g/dl (6.4-8.2)
[2024-07-18 19:33] LABS: EPI CELLS 8 /uL (0-25.1); HYALINE CASTS 0 /uL (0-3.1); PH,URINE 5.5 (5.0-8.0); URINE APPEARANCE CLOUDY; URINE BACTERIA >9,000 /uL (0-1359); URINE BILIRUBIN NEGATIVE (NEGATIVE); URINE COLOR YELLOW; URINE GLUCOSE (UA) NEGATIVE (NEGATIVE); URINE KETONE TRACE (NEGATIVE); URINE LEUK ESTERASE 2+ (NEGATIVE); URINE NITRITE NEGATIVE (NEGATIVE); URINE PROTEIN NEGATIVE (NEGATIVE); URINE RBC 8 /uL (0-23.9); URINE UROBILINOGEN 0.2 mg/dL (0.2-1.0); URINE WBC 32 /uL (0-25.8)
[2024-07-18] MEDS ORDERED: CEFTRIAXONE 1 G/50 ML PREMIX 50 ML IVPB ONE (21:38)
[2024-07-18] MEDS: CEFTRIAXONE 1 GM in DEXTROSE 5%-WATER - 50 ML IVPB ONE (21:41)
[2024-07-18 22:16] LABS: URINE CRYSTALS NONE SEEN /hpf
[2024-07-19] MEDS: amLODIPine BESYLATE 10 MG TABLET (FP) PO SCH (09:13)
[2024-07-19] MEDS: ASPIRIN COATED 81 MG TABLET.EC PO SCH (09:13)
[2024-07-19 09:42] LABS: BASO % 0.6 % (0-2.0); EOS % 1.5 % (0-4.5); HEMATOCRIT 40.6 % (32.4-45.2); HEMOGLOBIN 13.9 GM/dL (10.7-15.3); LYMPH % 21.6 % (8-40); MCH 31.5 pg (25.7-33.7); MCHC 34.3 g/dl (32.0-36.0); MEAN CELL VOLUME 91.7 fl (80-96); MEAN PLT VOLUME 9.4 fl (7.5-11.1); MONO % 7.9 % (3.8-10.2); NEUT % 68.4 % (42.8-82.8); PLATELET COUNT 209 10^3/uL (134-434); RBC 4.42 M/mm3 (3.60-5.2); RDW 12.4 % (11.6-15.6); WHITE BLOOD COUNT 7.9 K/mm3 (4.0-10.0)
[2024-07-19 10:01] LABS: POTASSIUM 3.5 mmol/L (3.5-5.1)
[2024-07-19 10:10] LABS: CALCIUM 9.1 mg/dL (8.5-10.1)
[2024-07-19 10:11] LABS: BLOOD UREA NITROGEN 12.8 mg/dL (7-18); MAGNESIUM 1.7 mg/dL (1.8-2.4)
[2024-07-19 10:14] LABS: CREATININE 0.6 mg/dL (0.55-1.3); PHOSPHOROUS 2.5 mg/dL (2.5-4.9)
[2024-07-19] MEDS: ATORVASTATIN CA 40 MG TABLET (FP) PO SCH (21:16)
[2024-07-19] MEDS: CEFTRIAXONE 1 G/50 ML PREMIX 50 ML IVPB SCH (21:16)
[2024-07-20] MEDS ORDERED: PATIENT'S OWN MEDICATION (NON-FORMULARY) (Lisinopril/Hydrochlorothiazide [Lisinopril-Hctz PO SCH (10:00)
[2024-07-20 10:16] LABS: POTASSIUM 3.7 mmol/L (3.5-5.1)
[2024-07-20 10:22] LABS: ALBUMIN 3.6 g/dl (3.4-5.0); BLOOD UREA NITROGEN 13.4 mg/dL (7-18); CALCIUM 8.9 mg/dL (8.5-10.1); MAGNESIUM 1.8 mg/dL (1.8-2.4)
[2024-07-20 10:25] LABS: PHOSPHOROUS 2.7 mg/dL (2.5-4.9)
[2024-07-20 10:26] LABS: CREATININE 0.7 mg/dL (0.55-1.3)
[2024-07-20 10:27] LABS: BILIRUBIN,TOTAL 0.9 mg/dL (0.2-1); TOT PROT 7.2 g/dl (6.4-8.2)
[2024-07-20] MEDS: HYDROCHLOROTHIAZIDE 12.5 MG CAPSULE (FP) PO SCH (10:27)
[2024-07-20] MEDS: LISINOPRIL 20 MG TABLET PO SCH (10:27)
[2024-07-20] MEDS: CEFUROXIME AXETIL 250 MG TABLET PO SCH (21:12)
[2024-07-20] MEDS ORDERED: CEFUROXIME AXETIL 250 MG TABLET PO SCH (22:00)
[2024-07-21 09:31] LABS: HEMATOCRIT 43.3 % (32.4-45.2); HEMOGLOBIN 14.7 GM/dL (10.7-15.3); MCH 31.3 pg (25.7-33.7); MCHC 33.8 g/dl (32.0-36.0); MEAN CELL VOLUME 92.6 fl (80-96); MEAN PLT VOLUME 9.2 fl (7.5-11.1); PLATELET COUNT 206 10^3/uL (134-434); RBC 4.68 M/mm3 (3.60-5.2); RDW 12.5 % (11.6-15.6); WHITE BLOOD COUNT 10.3 K/mm3 (4.0-10.0)
[2024-07-21 09:56] LABS: POTASSIUM 3.7 mmol/L (3.5-5.1)
[2024-07-21 10:03] LABS: CALCIUM 9.4 mg/dL (8.5-10.1)
[2024-07-21 10:04] LABS: BLOOD UREA NITROGEN 17.2 mg/dL (7-18)
[2024-07-21 10:07] LABS: CREATININE 0.7 mg/dL (0.55-1.3)
[2024-07-21 12:17] VITALS: BMI 29.9
[2024-07-22 14:13] LABS: BASO % 0.4 % (0-2.0); EOS % 0.5 % (0-4.5); HEMATOCRIT 43.2 % (32.4-45.2); HEMOGLOBIN 14.5 GM/dL (10.7-15.3); MCH 30.8 pg (25.7-33.7); MCHC 33.6 g/dl (32.0-36.0); MEAN CELL VOLUME 91.8 fl (80-96); MEAN PLT VOLUME 9.7 fl (7.5-11.1); MONO % 9.5 % (3.8-10.2); NEUT % 74.6 % (42.8-82.8); PLATELET COUNT 209 10^3/uL (134-434); RBC 4.71 M/mm3 (3.60-5.2); RDW 12.4 % (11.6-15.6); WHITE BLOOD COUNT 11.7 K/mm3 (4.0-10.0)
[2024-07-22] MEDS: CEFTRIAXONE 1 G/50 ML PREMIX 50 ML IVPB ONE (16:35)
[2024-07-22 16:45] LABS: URINE APPEARANCE TURBID; URINE BILIRUBIN 1+ (NEGATIVE); URINE COLOR DK YELLOW; URINE GLUCOSE (UA) TRACE (NEGATIVE); URINE KETONE 1+ (NEGATIVE); URINE LEUK ESTERASE TRACE (NEGATIVE); URINE NITRITE POSITIVE (NEGATIVE); URINE PROTEIN 1+ (NEGATIVE)
[2024-07-22 19:43] LABS: URINE RBC 55.4 /uL (0-23.9)
[2024-07-22 19:44] LABS: HYALINE CASTS 0.82 /uL (0-3.1); URINE BACTERIA 1001.3 /uL (0-1359); URINE CRYSTALS PRESENT /hpf
[2024-07-23 10:10] LABS: BASO % 0.6 % (0-2.0); HEMATOCRIT 41.4 % (32.4-45.2); HEMOGLOBIN 14.5 GM/dL (10.7-15.3); LYMPH % 14.3 % (8-40); MCH 31.7 pg (25.7-33.7); MEAN CELL VOLUME 90.6 fl (80-96); MEAN PLT VOLUME 9.2 fl (7.5-11.1); MONO % 9.1 % (3.8-10.2); PLATELET COUNT 194 10^3/uL (134-434); RBC 4.58 M/mm3 (3.60-5.2); RDW 12.5 % (11.6-15.6); WHITE BLOOD COUNT 10.6 K/mm3 (4.0-10.0)
[2024-07-23] MEDS: ENOXAPARIN NA (PORCINE) 40 MG/0.4 ML DISP.SYRIN SQ SCH (10:58)
[2024-07-23 22:20] VITALS: RESP 18
[2024-07-24 02:47] VITALS: BP 136/85; PULSE 87; TEMP 98.6
== END 2024-07-24 03:30 | DRG 57 ==
LOC: JER 15:52 → JERBED 20:23 → J6S 22:58
PROVIDERS: ADMIT Internal Medicine; ATTEND Internal Medicine
DX: G20.B1 Parkinson's disease with dyskinesia, without mention of fluctuations (principal); N39.0 Urinary tract infection, site not specified; I10 Essential (primary) hypertension; E78.5 Hyperlipidemia, unspecified; E11.9 Type 2 diabetes mellitus without complications; R26.2 Difficulty in walking, not elsewhere classified; D25.9 Leiomyoma of uterus, unspecified; B96.20 Unspecified Escherichia coli [E. coli] as the cause of diseases classified elsewhere; M51.369 Other intervertebral disc degeneration, lumbar region without mention of lumbar back pain or lower extremity pain; R13.10 Dysphagia, unspecified; D72.829 Elevated white blood cell count, unspecified; E66.9 Obesity, unspecified; Z68.30 Body mass index [BMI] 30.0-30.9, adult
CPT/HCPCS: 0241U-QW; 36415; 70450-TC; 70551-TC; 71045-TC-FY; 71046-TC-FY; 72148-TC; 80048; 80053; 81003; 82306; 82607; 82746; 82803; 82962; 83036; 83605; 83735; 83880; 84100; 84443; 84484; 85025; 85027; 85610; 85730; 86780; 86850; 86900; 86901; 87086; 87186; 93005; 93010; 97116-GP; 97162-GP; 99285-25